=== PATIENT | male | born 1925 | race Caucasian/White ===

== ENCOUNTER 2016-08-14 | Outpatient (CLI) | payer MEDICARE, OTHER | END 2016-08-14 10:16 | disposition home or self-care (01) ==

== ENCOUNTER 2016-12-22 14:15 | Outpatient (CLI) | payer MEDICARE, OTHER | END 2016-12-22 14:16 | disposition EMS.NT | LOC: EMS 14:15 | PROVIDERS: ATTEND Surgery | DX: Z03.89 Encounter for observation for other suspected diseases and conditions ruled out (principal); W08.XXXA Fall from other furniture, initial encounter; Y92.009 Unspecified place in unspecified non-institutional (private) residence as the place of occurrence of the external cause ==

== ENCOUNTER 2017-02-12 16:45 | Outpatient (CLI) | payer MEDICARE, OTHER | END 2017-02-12 16:46 | disposition short-term general hospital (02) | LOC: EMS 16:45 | PROVIDERS: ATTEND Surgery | DX: R53.1 Weakness (principal); W19.XXXA Unspecified fall, initial encounter; Y92.001 Dining room of unspecified non-institutional (private) residence as the place of occurrence of the external cause | CPT/HCPCS: A0425; A0429 ==

== ENCOUNTER 2017-02-28 08:52 | Outpatient (CLI) | payer MEDICARE, OTHER | END 2017-02-28 08:53 | disposition short-term general hospital (02) | LOC: EMS 08:52 | PROVIDERS: ATTEND Surgery | DX: T14.90 Injury, unspecified (principal); W18.30XA Fall on same level, unspecified, initial encounter; Y93.9 Activity, unspecified; Y92.008 Other place in unspecified non-institutional (private) residence as the place of occurrence of the external cause | CPT/HCPCS: A0425; A0429 ==

== ENCOUNTER 2017-03-07 14:39 | Outpatient (CLI) | payer MEDICARE, OTHER | END 2017-03-07 14:40 | disposition short-term general hospital (02) | LOC: EMS 14:39 | PROVIDERS: ATTEND Surgery | DX: R53.1 Weakness (principal); R50.9 Fever, unspecified | CPT/HCPCS: A0425; A0429 ==

== ENCOUNTER 2017-03-31 02:28 | Outpatient (CLI) | payer MEDICARE, OTHER | END 2017-03-31 02:29 | disposition EMS.NT | LOC: EMS 02:28 | PROVIDERS: ATTEND Surgery | DX: Z03.89 Encounter for observation for other suspected diseases and conditions ruled out (principal) ==